=== PATIENT | female | born 1965 | race Caucasian/White ===

== ENCOUNTER → 2024-02-04 10:07 | Outpatient (REF) | payer OTHER, SELFPAY | LOC: DHCBC HW 10:07 | PROVIDERS: ATTENDING PHYSICIAN Nurse Practitioner Gerontology; FAMILY PHYSICIAN Family Medicine | DX: R00.2 Palpitations (principal); I35.1 Nonrheumatic aortic (valve) insufficiency | CPT/HCPCS: 93306 ==